=== PATIENT | female | born 2000 | race Caucasian/White ===

== ENCOUNTER 2025-05-12 14:21 | Emergency (ER) | payer OTHER, SELFPAY ==
[~2025-05-12] VITALS: Ht 154.9 cm; Wt 50.2 kg
[2025-05-12 15:33] LABS: BASO # 0.0 10^3/uL (0.0-0.2); BASO % 0.3 % (0.0-1.0); EOS # 0.0 10^3/uL (0.0-0.5); EOS % 0.2 % (0.0-3.0); LYMPH # 1.8 10^3/uL (1.5-5.0); LYMPH % 18.1 % (24.0-44.0); MONO # 0.4 10^3/uL (0.0-0.8); MONO % 4.0 % (2.0-8.0); NEUTROPHILS # 7.5 10^3/uL (1.5-8.5); NEUTROPHILS % 77.1 % (36.0-66.0); PLATELET COUNT, AUTOMATED 244 10^3/uL (150-450)
[2025-05-12 15:55] LABS: ALT/SGPT 15 U/L (7.0-40); AST/SGOT 23 U/L (<34); CALCIUM LEVEL 9.0 MG/DL (8.5-10.1); CARBON DIOXIDE LEVEL 26 MMOL/L (20-31); CHLORIDE LEVEL 103 MMOL/L (98-107); CREATININE FOR GFR 0.78 MG/DL (0.55-1.30); GLOMERULAR FILTRATION RATE > 90.0 (>60); POTASSIUM SERUM 4.6 MMOL/L (3.5-5.1); SODIUM LEVEL 139 MMOL/L (136-145)
[2025-05-12 15:56] LABS: HCG, SERUM QUALITATIVE NEGATIVE (NEGATIVE)
[2025-05-12] MEDS ORDERED: ISOVUE-370 76% 100 ML VIAL As Ordered ONE (18:07)
[2025-05-12 21:34] VITALS: BP 135/75; TEMP 99.1; O2SAT 100
== END 2025-05-12 21:39 | disposition home or self-care (01) ==
LOC: M ED 14:21
DX: R10.9 Unspecified abdominal pain (principal); N83.292 Other ovarian cyst, left side; K59.00 Constipation, unspecified; D73.89 Other diseases of spleen; M41.25 Other idiopathic scoliosis, thoracolumbar region; Z88.1 Allergy status to other antibiotic agents; Z91.018 Allergy to other foods
CPT/HCPCS: 36415; 74177; 76830; 76856; 80048; 80076; 83690; 84703; 85025; 87486; 87581; 87633; 87798; 93976; 99284; Q9967